=== PATIENT | male | born 1935 | race Caucasian/White ===

== ENCOUNTER 2016-10-04 12:51 | Day surgery (SDC) | payer MEDICARE ==
[2016-10-04] VITALS (10 sets, daily range): BP systolic 112–135; BP diastolic 54–117; PULSE 48–68; RESP 12–17; O2SAT 93–100
[~2016-10-04] VITALS: Ht 175.3 cm; Wt 82.7 kg
--- NOTE | 2016-10-04 08:19 | PCM.HPANE ---
Patient Data Surgeon Admitting Provider: Attending Provider:Ken Ricketts MD Primary Care Physician:Raimundo Hills MD Other Provider:Genevieve Pinedaingham Anesthesia Reason for Visit Right Shoulder Rotator Cuff Tear Ht/WT & BMI Height (Feet): 5 Height (Inches): 7 Weight (Kilograms): 84.1 Body Mass Index 29.00 Allergies Coded Allergies: Sulfa (Sulfonamide Antibiotics) (Verified Allergy, Unknown, UNKNOWN, ) niacin (Unverified Allergy, Unknown, UNKNOWN, 10/03/16) pravastatin (Unverified Allergy, Unknown, UNKNOWN, 10/03/16) Past Anesthesia History Anesthesia History: Denies:: Abnormal Airway, Anesthesia Reactions, Difficult Intubation, Fam Anesthesia Reaction, Fam Malignant Hypertherm, Malignant Hyperthermia Diabetes History Hx Diabetes?: Yes Type of Diabetes: Type II Glycemic Control: Oral Medication MRSA MRSA: No Medications Blood Thinner: Aspirin Home Meds Incl Beta Cole: Yes (ATENOLOL) Date Beta Cole Taken: Oct 03, 2016 Time Beta Cole Taken: 20:00 Reported Medications oxyCODONE 5 Mg Tablet5-10 Mg PO Q4-6H PRN For Pain Ref 0 10/03/16 Tramadol 50 Mg Bfuasa11 Mg PO Q8H PRN For Pain Ref 0 10/03/[address] (Protonix)40 Mg Egdbkg94 Mg PO DAILY Ref 0 10/03/16 Oxybutynin Chloride ER 10 Mg Tab.er.2410 Mg PO DAILY Ref 0 10/03/16 Metformin 500 Mg Wcewer847 Mg PO BID Ref 0 10/03/16 Gabapentin 300 Mg Emwumzi585 Mg PO HS Ref 0 10/03/16 Docusate Sodium 250 Mg Inlqcvy814 Mg PO DAILY PRN For Constipation Ref 0 10/03/16 Calcium Carbonate/Vitamin D3 (Calcium 500 + Vit D Caplet)1 Each Tablet1 Each PO DAILY 10/03/16 Fluticasone Propionate (Flonase Allergy Relief)50 Mcg/Actuation [place].susp9.9 Ml NS DAILY PRN PRN 10/03/16 Aspirin 81 Mg Vdxiku95 Mg PO DAILY Ref 0 10/03/16 Atenolol 25 Mg Tablet0.5 Tab PO DAILY #30 TABLET Ref 0 12/15/14 Rosuvastatin Calcium (Crestor)20 Mg Jntyfa00 Mg PO HS 30 Days Ref 0 06/25/14 Citalopram 20 Mg Tablet2 Tab PO HS 30 Days Ref 0 06/24/14 Isosorbide MN ER 60 Mg Tab.er.24h60 Mg PO DAILY 06/24/14 Discontinued Reported Medications Fluticasone Propionate (Flonase Nasal)16 Gm [place].susp1 [place] NS BID PRN For Congestion #16 GM Ref 0 01/03/15 Thiamine Mononitrate (Vitamin B-1)100 Mg Uheaub714 Mg PO DAILY 12/15/14 Niacin ER (Niaspan)750 Mg Tab.er.39w411 Mg PO HS 30 Days Ref 0 12/15/14 Meloxicam 15 Mg Xfkrwj65 Mg PO DAILY 30 Days Ref 0 12/15/14 Calcium Carbonate/Vitamin D3 (Calcium 500 + D Tablet)1 Each Tablet1 Each PO 12/15/14 Aspirin (Aspir 81)81 Mg Tablet.dr81 Mg PO DAILY Ref 0 06/24/14 History History of ENT Problems?: Yes HEENT History: Positive for:: Dysphagia Denies:: Abnormal Airway Cataracts Difficult Intubation Hearing Problem Sinus Problem Other HEENT Pertinent History: S/P TONSILLECTOMY Hx of Heart Problems?: Yes Cardiovascular History: Positive for:: Cardiac Surgery (HEART CATH/stent placement 2009-06) Coronary Artery Disease Hypertension Rheumatic Fever (CHILDHOOD) Denies:: AICD Abdominal Aortic Aneurism Atrial Fibrillation Chest Pain Congestive Heart Failure Edema Heart Murmur (ECHO 01/2013 EF 55-60%) Irregular Heartbeat Pacemaker Thrombophlebitis Valvular Heart Disease Hx of Respiratory Problem?: No Respiratory History: Positive for:: Cough Pneumonia Use of C-PAP Machine (VADIM+ W/ CPAP SLEEP STUDY 02/2013) Denies:: Asthma COPD (PFT 01/2014 WNL) Hemoptysis Tuberculosis Hx Neurologic Problems?: Yes Neurological History: Positive for:: 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) Denies:: Alzheimer's Disease Dementia Dizziness Headaches Parkinson's Disease Seizures Other Neurological Pertinent: HX POLYMYALGIA RHEUMATICA Hx of GI Problems?: Yes Gastrointestinal History: Positive for:: Gall Bladder Disease (S/P LUCITA) Gastroesphageal Reflux Heartburn Hiatal Hernia Denies:: Cirrhosis Diverticulitis Gastrointestinal Bleeding Hepatitis Rectal Bleeding Other GI Pertinent History: S/P RPR INCARCERATED UMBILICAL HERNIA Hx of Problems?: Yes Genitourinary History: Positive for:: Kidney Stones (50 years ago) Denies:: HX of Hemodialysis Urinary Tract Infection HX of Peritoneal Dialysis: No Male Hx: Positive for:: Prostate Problems (S/P PROSTATECTOMY FOR CA) Denies:: Scrotal Mass Testicular Surgery Skin History: Denies:: History Skin Disorders? Pressure Ulcers Hx Musculoskeletal Problems?: No Musculoskeletal History: Positive for:: Back Injury (Mid-lower back.) Degenerative Joint Joint Replacement (S/P NOAH) Musculoskeletal Trauma ( HX FX RT FIBULA) Osteoarthritis Hx of Psycho/Social Problems?: No Psycho Social History: Positive for:: Hx Depression Denies:: Anxiety Hx Surgeries?: Yes (CARDIAC STENT, BACK, HERNIA REPAIR, PROSTATE) Hx Any Other Health Problems?: Yes Other History: Positive for:: Cancer (prostate ca) Hospitalization ([facility],O 3 LEVELS,HEART CATH/STENTS,PROSTATECTOMY,ORIF RT FIB, LUCITA,NOAH,TONSILS) Denies:: Endocrine Disease Thyroid Disease History Blood Transfusions: Denies:: Blood Transfuse Reaction Blood Transfusions Hx Diabetes: Yes Hx Alcohol Use: Yes (OCCASIONAL)Hx Substance Use: No Smoking Status: Former Smoker Have You Smoked inLast 12 mo: No Stop/Bang S-Snoring: Do You Snore Loudly: No T-Tired: feel tired, fatigued: Yes O-Obsered: Observed not breath: No P-Blood Pressure: treated: Yes B- Body Mass Index > 35 kg/m2: No A- Age over 50: Yes N- Neck Large Circumference: No G- Gender Male: Yes VADIM Total Score: 4 VADIM Risk Assessment: High Risk, =/>3 Yes VADIM Category 2: Yes Risk Assessment Category Category 1A: Patient has history of documented sleep apnea, and HAS NOT received any narcotic, sedative or anesthesia administration during this stay. Category 1B: Patient has history of documented sleep apnea, and HAS received any narcotic , sedative or anesthesia administration during this stay Category 2: Patient has SUSPECTED Obstructive Sleep Apnea, and HAS received any narcotic , sedative or anesthesia administration during this stay. Category 3: Patient has SUSPECTED Obstructive Sleep Apnea and HAS NOT received narcotic, sedative or anesthesia administration during this stay. Category 4: Outpatient in Procedural Areas with known sleep apnea or who screen positive for High Risk via the STOP/BANG questionnaire. Exam Exam General Appearance: Alert, Oriented X3, Cooperative, No Acute Distress HEENT/AIRWAY: MP 2 Lungs: Clear to Auscultation, Normal Air Movement Heart: Exam Unremarkable, Regular Rate/Rhythm, No Murmurs/Rubs/Gallops Plan Impression Patient chart reviewed, patient interviewed and anesthestic plan with risks, benefits, and alternatives discussed, and informed consent obtained. NPO Status: 06/24/14 ASA Physical Status: ASA3 Severe Disease Anesthetic Plan: GA, Regional Block (right interscalene block consented and planned) Bene/Risks/Altern/Consents: Yes HP Complete Prior to Induction: Yes Terence Reddy MD Oct 04, 2016 08:19
[~2016-10-04 12:51] MED LIST: ASPI-973 PO; ATEN25TA PO; CALC-78 PO; CITA20TA11 PO; CRES20T PO; CeFAZolin 2 Gm/50 mL D5W IV Premix IV ONE; DOCU250C2 PO; FLUT9.9S NS; GABA-502 PO; ISOS60TA2 PO; Lactated Ringer's 1,000 ML IV SCH; METF500T4 PO; OXYB10TA PO; OXYC5TAB72 PO; PANT40TA2 PO; TRAM50TA2 PO
[2016-10-04] MEDS ORDERED: CeFAZolin 2 Gm/50 mL D5W Duplex Bag IV ONE (13:21)
[2016-10-04] MEDS: Lactated Ringer's 1,000 ML IV SCH ×2 (13:38→14:27)
[2016-10-04] MEDS ORDERED: Bupivacaine-MPF 0.5% W/EPI 30 mL Inj INFILTRATE ONE (14:26)
[2016-10-04] MEDS ORDERED: Lidocaine 2%-Epi 1:100,000 20 mL Inj NERVEBLOCK ONE (14:27)
[2016-10-04] MEDS ORDERED: Lactated Ringer's 1,000 ML IV SCH (14:54)
[2016-10-04] MEDS ORDERED: Lactated Ringer's 500 ML IV PRN (14:54)
[2016-10-04] MEDS ORDERED: fentaNYL-PF 50 mCg/mL 2 mL Inj IVPUSH PRN (14:55)
[2016-10-04] MEDS ORDERED: MetoCLOpramide 5 mg/mL 2 mL Inj IVPUSH PRN (14:55)
[2016-10-04] MEDS ORDERED: Dexamethasone 4 mg/mL Inj IVPUSH PRN (14:55)
[2016-10-04] MEDS ORDERED: Phenylephrine 10,000 mCg/mL Inj IVPUSH PRN (14:55)
[2016-10-04] MEDS ORDERED: EPHEDrine Sulfate 50 mg/mL Inj IVPUSH PRN (14:55)
[2016-10-04] MEDS ORDERED: Ondansetron 2 mg/mL 2 mL Inj IVPUSH PRN (14:55)
[2016-10-04] MEDS ORDERED: HYDROmorphone 1 mg/mL Inj IVPUSH PRN (14:55)
--- NOTE | 2016-10-04 16:26 | PCM.ORTHOB ---
Immediate Operative Note Date of Service: Oct 04, 2016 Pre Operative Diagnosis Right shoulder rotator cuff tear Post Operative Diagnosis Same Procedure Right shoulder open rotator cuff repair and acromioplasty Surgeon Surgeon: Ken Ricketts MD Assistants: Jase Wiseman PA-C Findings Right shoulder type II acromion. Full-thickness and retracted tear supraspinatus tendon. Transverse avulsion pattern off the greater tuberosity 3 cm wide with 2-1/2 cm of medial retraction with the supraspinatus tear beginning just posterior to the biceps tendon which appeared intact. Humeral articular surface was intact with minimal periarticular degenerative changes. Tendon to bone double row repair utilizing four Arthrex 4.75 x 19.1 mm PEEK SwivelLock suture anchors with fiber tape and #2 FiberWire. Repair appeared sound with no undue gapping or tension with the intraoperative shoulder range of motion. Repair site did not impinge upon the acromial undersurface. Grafts, Implants: Implants-See Implant Record Complications There were no periprocedural complications identified. Condition Stable Anesthetic Administered: GA, Regional Block Drains: None Catheters: None Output, Estimated Blood Loss: 20 Blood Admin during surgery: No Surgical Cast or Splint: Shoulder Immobilizer Surgical Specimen Removed: No Surgical Specimen sent to Path: No Post Operative Plan The patient will be discharged from daycare surgery went protocol is met. The patient will come out of his right shoulder sling starting postop day #1 to initiate shoulder pendulum exercises, elbow, wrist and hand range of motion exercises. The patient will otherwise refrain from any more strenuous shoulder activities for the next 6 weeks. The patient will present to the orthopedic clinic on or after postoperative day #5 for routine wound check. Skin suture can be removed on or after postoperative day #12. Ken Ricketts MD Oct 04, 2016 16:26
[2016-10-04] MEDS ORDERED: oxyCODONE-Acetamin 5-325 mg Tablet PO PRN (16:35)
--- NOTE | 2016-10-04 16:40 | PCM.ORTHOP ---
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 The patient' s painful right shoulder is also weak with strenuous overhead shoulder activities. The patient's symptoms keep him up at night and interferes with activities of daily living. Preoperative exam of the patient's right shoulder reveals limited forward flexion and weak forward flexion as well as a positive impingement sign. Preoperative MRI of the patient's right shoulder confirms a complete 1 cm tear of the anterolateral supraspinatus tendon with associated severe tendinosis. Type II acromion is noted. The patient has not gotten relief of his shoulder symptoms through activity modification, analgesics and an attempt at shoulder rehabilitation to a home exercise program. The patient presents for right shoulder rotator cuff repair and acromioplasty. The skilled assistance of a physician's vet assistant, Jase Wiseman PA-C, was necessary for the successful completion of this case. The PA was essential for the proper positioning, manipulation of instruments, proper exposure, manipulation of tissues and wound closure. Findings Right shoulder type II acromion. Full-thickness and retracted tear supraspinatus tendon. Transverse avulsion pattern off the greater tuberosity 3 cm wide with 2-1/2 cm of medial retraction with the supraspinatus tear beginning just posterior to the biceps tendon which appeared intact. Humeral articular surface was intact with minimal periarticular degenerative changes. Tendon to bone double row repair utilizing four Arthrex 4.75 x 19.1 mm PEEK SwivelLock suture anchors with fiber tape and #2 FiberWire. Repair appeared sound with no undue gapping or tension with the intraoperative shoulder range of motion. Repair site did not impinge upon the acromial undersurface. Details of Procedure The patient received a right upper extremity supraclavicular block performed by the anesthesia service. The patient was taken to the OR and given a general anesthetic. He is placed in the beachchair position. The right shoulder girdle and upper extremity were prepped and draped in usual sterile fashion. A slightly oblique anterior saber incision was placed over the lateral edge of the acromium and taken down through subcutaneous tissues after infiltrating the skin with 2% lidocaine with epinephrine. The exposure was deepened to the deltoid where the deltoid was divided in line with its fibers between the anterior and middle one third heads off the lateral edge of the acromion. We deepened through the deep deltoid fascia and encountered a thickened subacromial bursa and a campbell of synovial fluid. We confirmed the presence of a type II acromion and a large, retracted full-thickness tear of the supraspinatus tendon beginning just posterior to the biceps tendon which appeared intact and extended in a transverse fashion posteriorly 3 cm. There was 2-1/2 cm of medial retraction of the somewhat tendon on the tendon edge. Minimal debridement of the tendon was required. We proceeded with our subacromial acromioplasty. Metacarpal osteotomes and a air sagittal saw was used to remove an anterolateral wedge of the acromial undersurface. The acromial undersurface was then rasped smooth with a power rasp and the wound was irrigated. We proceeded with our tendon to bone double row rotator cuff repair using 4 Arthrex PEEK SwivelLock suture anchors. Two of the anchors were placed as a medial row paralleling and just distal to the humeral head articular surface at the periphery of the tears. We used the Arthrex scorpion instrument to pass the fiber tape and #2 FiberWire sutures through the retracted supraspinatus tendon stump. The fiber tape and FiberWire were then attached to the 2 lateral suture anchors and seated into the greater tuberosity 2 cm distal to the medial row suture anchors. This resulted in a satisfactory repair of the previously torn and retracted supraspinatus tendon without any peripheral dog ears. The excess FiberWire and fiber tape were removed. The repair appeared sound without any undue gapping or tension with shoulder range of motion. The repair site did not impinge on the acromial undersurface. We thoroughly irrigated the wound. We closed with interrupted [id number] #1 Vicryl repair of the deltoid split. We used 2-0 Vicryl to close the deep subcutaneous tissues and 3-0 Vicryl to close the superficial subcutaneous tissues. A running 3-0 Prolene subcuticular stitch was used to close the skin. Xeroform and dry gauze dressings were applied. The patient was then placed into a right shoulder sling and taken back to PACU in stable and satisfactory condition. There were no complications. Patient tolerated the procedure well. Grafts, Implants: Implants-See Implant Record Complications There were no periprocedural complications identified. Condition Stable Anesthetic Administered: GA, Regional Block Drains: None Catheters: None Output, Estimated Blood Loss: 20 Blood Admin during surgery: No Surgical Cast or Splint: Shoulder Immobilizer Surgical Specimen Removed: No Specimen sent to Pathology: No Post Operative Plan The patient will be discharged from daycare surgery went protocol is met. The patient will come out of his right shoulder sling starting postop day #1 to initiate shoulder pendulum exercises, elbow, wrist and hand range of motion exercises. The patient will otherwise refrain from any more strenuous shoulder activities for the next 6 weeks. The patient will present to the orthopedic clinic on or after postoperative day #5 for routine wound check. Skin suture can be removed on or after postoperative day #12. copies to: Raimundo Hills MD; Ken Ricketts MD, Michael G.E MD Oct 04, 2016 16:40
[2016-10-04] MEDS ORDERED: Lactated Ringer's 1,000 ML IV ONE (19:00)
--- NOTE | 2016-10-05 07:20 | PCM.ANEP1 ---
Post Anesthesia Phase 1 PACU Phase 1 Assessment Date of Service: Oct 04, 2016 Anesthetic Administered: GA, Regional Block Level of Alertness: Sleepy, easy to arouse BELL's with Equal Strength: Yes Pain: No Nausea or Vomiting: No Oxygen Delivery: Nasal Cannula Lungs: Clear to Auscultation, Normal Air Movement Dermatome Level: Full Sensation Terence Reddy MD Oct 05, 2016 07:20
--- NOTE | 2016-10-05 07:20 | PCM.ANEP2 ---
Post Anesthesia Evaluation ASA/CMS Post Anesthesia VS in Patient's Normal Range?: Yes Resp Stable; Airway Patent?: Yes CV Function & Hydration Stable: Yes Mental Status Recovered?: Yes Pain control Satisfactory?: Yes N/V Control Satisfactory?: Yes Terence Reddy MD Oct 05, 2016 07:20
== END 2016-10-04 23:59 | disposition home or self-care (01) ==
LOC: SAS 12:51
PROVIDERS: ATTEND Orthopaedic Surgery
DX: M75.121 Complete rotator cuff tear or rupture of right shoulder, not specified as traumatic (principal); W18.30XA Fall on same level, unspecified, initial encounter; Y93.9 Activity, unspecified; Y92.9 Unspecified place or not applicable; Y99.9 Unspecified external cause status; E11.9 Type 2 diabetes mellitus without complications; I10 Essential (primary) hypertension; I25.10 Atherosclerotic heart disease of native coronary artery without angina pectoris; E78.2 Mixed hyperlipidemia; G47.33 Obstructive sleep apnea (adult) (pediatric); F32.9 Major depressive disorder, single episode, unspecified; I69.119 Unspecified symptoms and signs involving cognitive functions following nontraumatic intracerebral hemorrhage; K21.9 Gastro-esophageal reflux disease without esophagitis; Z79.82 Long term (current) use of aspirin; Z79.84 Long term (current) use of oral hypoglycemic drugs; Z87.891 Personal history of nicotine dependence; Z95.5 Presence of coronary angioplasty implant and graft; Z85.46 Personal history of malignant neoplasm of prostate; Z85.828 Personal history of other malignant neoplasm of skin; Z90.79 Acquired absence of other genital organ(s); Z96.649 Presence of unspecified artificial hip joint
CPT/HCPCS: 23420; 76942; C1713; J0690; J2405; J7120

== ENCOUNTER 2017-04-07 16:27 | Emergency (ER) | payer MEDICARE ==
[~2017-04-07] VITALS: Ht 175.3 cm; Wt 86.3 kg
[~2017-04-07 16:27] MED LIST changes: -CeFAZolin 2 Gm/50 mL D5W IV Premix IV ONE; -Lactated Ringer's 1,000 ML IV SCH
[2017-04-07 16:37] VITALS: BP 132/96; PULSE 91; RESP 17; O2SAT 98
--- NOTE | 2017-04-07 16:47 | ED.REPORT ---
HPI-General Illness Date of Service Apr 07, 2017 ED Provider: Ronnie Bradford MD Nursing Notes Stated Complaint: EYE PAIN/FROM [facility] Chief Complaint: Eye Nursing Notes Reviewed: Yes Allergies: Coded Allergies: Sulfa (Sulfonamide Antibiotics) (Verified Allergy, Unknown, UNKNOWN, ) niacin (Unverified Allergy, Unknown, UNKNOWN, 10/03/16) pravastatin (Unverified Allergy, Unknown, UNKNOWN, 10/03/16) Scheduled Aspirin (Aspirin) 81 Mg Tablet 81 MG PO DAILY Atenolol (Atenolol) 25 Mg Tablet 0.5 TAB PO DAILY Calcium Carbonate/Vitamin D3 (Calcium 500 + Vit D Caplet) 1 Each Tablet 1 EACH PO DAILY Citalopram (Citalopram) 20 Mg Tablet 2 TAB PO HS Gabapentin (Gabapentin) 300 Mg Capsule 300 MG PO HS Isosorbide MN ER (Isosorbide MN ER) 60 Mg Tab.er.24h 60 MG PO DAILY Metformin (Metformin) 500 Mg Tablet 500 MG PO BID Oxybutynin Chloride ER (Oxybutynin Chloride ER) 10 Mg Tab.er.24 10 MG PO DAILY Pantoprazole DR (Protonix) 40 Mg Tablet 40 MG PO DAILY Rosuvastatin Calcium (Crestor) 20 Mg Tablet 20 MG PO HS Scheduled PRN Docusate Sodium (Docusate Sodium) 250 Mg Capsule 250 MG PO DAILY PRN PRN For Constipation Fluticasone Propionate (Flonase Allergy Relief) 50 Mcg/Actuation [place].susp 9.9 ML NS DAILY PRN PRN PRN Tramadol (Tramadol) 50 Mg Tablet 50 MG PO Q8H PRN PRN For Pain oxyCODONE (oxyCODONE) 5 Mg Tablet 5-10 MG PO Q4-6H PRN PRN For Pain General Time Seen by MD: 16:46 Past Medical History Past Medical History Notes: In ED on 12/18/14 for altered LOC - no cause identified Past Medical History [place] Heart murmur Pneumonia Sleep apnea Hiatal hernia Kidney stones Cholecystitis Arthritis Thrombocytopenia Reports: Cancer, GERD, Hyperlipidemia, Hypertension Past Surgical History Cardiac stents/cath S/P prostatectomy for CA Right fibula repair Spine surg Laparoscopic cholecystectomy with intraoperative cholangiogram on 12/16/14 Reports: Hip replacement Family History Noncontributory Smoking History Former Smoker Social History Alcohol Use: "Social" Drug Use: Denies drug use Other Social History: , Local resident Occupation salad counter attendant Ambulatory Status Walker Physical Exam Vital Signs Vital Signs Date Time Temp Pulse Resp B/P Pulse Ox O2 Delivery O2 Flow Rate FiO2 04/07/17 16:37 36.9 91 17 132/96 98 Room Air Discharge & Departure Referrals: Raimundo Hills MD (PCP) copies to: Raimundo Hills MD, William B MD Apr 07, 2017 16:47 MACIE WALDROP Apr 07, 2017 16:54 Full Review of Systems Eyes: Reports: Discharge right Respiratory: Denies: Non-productive cough, Shortness of breath Cardiovascular: Denies: Chest pain GI: Denies: Abdominal pain, Vomiting Musculoskeletal: Denies: Back pain, Neck pain Skin: Denies Rash Complete sys rev & neg: except as marked. Physical Exam Constitutional: Well-developed, well-nourished. Not diaphoretic. Head: Normocephalic and atraumatic. Mouth/Throat: Oropharynx is clear and moist. No oropharyngeal exudate. Eyes: EOM are normal. Pupils are equal, round, and reactive to light. Visual acuity: 20/40 bilaterally. Neck: Supple, no tracheal deviation. Cardiovascular: Normal rate, regular rhythm. Equal and intact distal pulses throughout. Pulmonary/Chest: Effort normal and breath sounds normal. No respiratory distress. Abdominal: Soft. No distension. There is no tenderness, rebound, or guarding. Bowel sounds present. Musculoskeletal: Range of motion grossly intact, moving all extremities. No edema or tenderness appreciated. Neurological: AOx3. Grossly nonfocal exam. Strength and sensation intact and equal to bilateral upper and lower extremities. Normal finger to nose testing . No pronator drift. Negative Romberg, unremarkable gait. Skin: Warm and dry, no rashes or pallor appreciated. Psychiatric: Appropriate mood and affect. Behavior appears normal. Vital Signs Vital Signs Date Time Temp Pulse Resp B/P Pulse Ox O2 Delivery O2 Flow Rate FiO2 04/07/17 16:37 36.9 91 17 132/96 98 Room Air Initial VS: Reviewed Re-Eval/Medical Decision Med Decision/Clinical Course visual acuity: 20/40 bilaterally Counseled Regarding: Diagnosis, Lab results, Need for follow-up, When/why to return to ED Discharge & Departure Disposition: Home Discharge Condition All VS Reviewed: Yes Condition: Stable Referrals: Raimundo Hills MD (PCP) [place] Attestation Portions of this note were transcribed by Macie Waldrop. I, Dr. Bradford personally performed the history, physical exam and medical decision-making; I reviewed and confirmed the accuracy of the information in the transcribed note. Signed by: Justin Burgess, 04/07/2017 and [id number]. copies to: Raimundo Hills MD, William B MD Apr 07, 2017 16:47 MACIE WALDROP Apr 07, 2017 16:54
[2017-04-07] MEDS ORDERED: Fluorescein 0.6 mg Ophthalmic Strip ONE (16:48)
[2017-04-07] MEDS ORDERED: 0.9% Sodium Chloride Inhalation Solution ONE (16:48)
[2017-04-07] MEDS ORDERED: Tetracaine 0.5% 4 mL Ophthalmic Solution ONE (16:49)
--- NOTE | 2017-04-07 18:29 | ED.REPORT ---
HPI-Eye Problem Date of Service Apr 07, 2017 ED Provider: Dov Finley DO Pt is an 81 year old male with a history of type II DM and AL who presents to the ED complaining of worsening bloody right eye drainage onset this morning. He c/o associated mildly diminished vision. He denies right eye pain or swelling. The pt presented to with his symptoms and was referred to the ED for further evaluation. He reports taking aspirin daily. The pt reports that he didn't sneeze or cough, but he may have rubbed his eye. Nursing Notes Stated Complaint: EYE PAIN/FROM [facility] Chief Complaint: Eye Nursing Notes Reviewed: Yes Allergies: Coded Allergies: Sulfa (Sulfonamide Antibiotics) (Verified Allergy, Unknown, UNKNOWN, ) niacin (Unverified Allergy, Unknown, UNKNOWN, 10/03/16) pravastatin (Unverified Allergy, Unknown, UNKNOWN, 10/03/16) Scheduled Aspirin (Aspirin) 81 Mg Tablet 81 MG PO DAILY Atenolol (Atenolol) 25 Mg Tablet 0.5 TAB PO DAILY Calcium Carbonate/Vitamin D3 (Calcium 500 + Vit D Caplet) 1 Each Tablet 1 EACH PO DAILY Citalopram (Citalopram) 20 Mg Tablet 2 TAB PO HS Gabapentin (Gabapentin) 300 Mg Capsule 300 MG PO HS Isosorbide MN ER (Isosorbide MN ER) 60 Mg Tab.er.24h 60 MG PO DAILY Metformin (Metformin) 500 Mg Tablet 500 MG PO BID Oxybutynin Chloride ER (Oxybutynin Chloride ER) 10 Mg Tab.er.24 10 MG PO DAILY Pantoprazole DR (Protonix) 40 Mg Tablet 40 MG PO DAILY Rosuvastatin Calcium (Crestor) 20 Mg Tablet 20 MG PO HS Scheduled PRN Docusate Sodium (Docusate Sodium) 250 Mg Capsule 250 MG PO DAILY PRN PRN For Constipation Fluticasone Propionate (Flonase Allergy Relief) 50 Mcg/Actuation [place].susp 9.9 ML NS DAILY PRN PRN PRN Tramadol (Tramadol) 50 Mg Tablet 50 MG PO Q8H PRN PRN For Pain oxyCODONE (oxyCODONE) 5 Mg Tablet 5-10 MG PO Q4-6H PRN PRN For Pain General Time Seen by MD: 18:29 Chief Complaint Right eye affected Hx Obtained From: Patient Arrived By: Walk-in Sudden in Onset?: No Onset Occurred: 5 - 8 hours ago Symptom Duration: Since onset Past Medical History Past Medical History Notes: In ED on 12/18/14 for altered LOC - no cause identified Past Medical History AL Heart murmur Pneumonia Sleep apnea Hiatal hernia Kidney stones Cholecystitis Arthritis Thrombocytopenia Reports: Cancer, GERD, Hyperlipidemia, Hypertension Past Surgical History Cardiac stents/cath S/P prostatectomy for CA Right fibula repair Spine surg Laparoscopic cholecystectomy with intraoperative cholangiogram on 12/16/14 Reports: Hip replacement Family History Noncontributory Smoking History Former Smoker Social History Alcohol Use: "Social" Drug Use: Denies drug use Other Social History: , Local resident Occupation taxation accountant Ambulatory Status Walker Review of Systems Eyes: Reports: Discharge right, Redness right, Denies: Eye pain left, Eye pain right Complete sys rev & neg: except as marked. Respiratory: Denies: Non-productive cough Physical Exam Initial Vital Signs Vital Signs (First) Date Time Temp Pulse Resp B/P Pulse Ox O2 Delivery O2 Flow Rate FiO2 04/07/17 16:37 36.9 91 17 132/96 98 Room Air Initial VS: Reviewed Neck: Supple, Full range of motion Respiratory: Breath sounds normal, Clear to auscultation, No respiratory distress Cardiovascular: Regular rate & rhythm, Heart sounds normal, Intact distal pulses Abdomen / GI: Soft, Non-tender Extremities: Vascular intact, Neuro intact Skin: Warm, Dry, No cyanosis Neurologic: Alert, Oriented, Nonfocal Psychiatric: Mood/affect normal, Behavior normal Head / Eyes: Atraumatic, Normocephalic, PERRL 80% subjunctival hemorrhage, but anterior chambers are clear. Scleral abrasion present. Right eye pressure - 17. Retina normal. Vision acuity normal. No cells in anterior chamber. General/Constitutional: Awake, Alert, Cooperative Re-Eval/Medical Decision Med Decision/Clinical Course Florescein uptake over the inferior aspect of his sclera. No corneal abrasion. I will place him on topical anti-infection drops. Up for follow-up. No signs of globe or anterior or posterior chamber involvement Source of Hx: Old records Re-Evaluation/Progress : Time of Eval: 18:41 Patient Status: Condition improved Re-Evaluation/Progress Note: Pt rechecked. Informed pt of plan for discharge. Pt understands and agrees with plan for discharge. F/U instructions and RTER warnings given. All questions addressed. Counseled Regarding: Diagnosis, Need for follow-up, When/why to return to ED Discharge & Departure Primary Impression: Subconjunctival hemorrhage of right eye Additional Impression: Abrasion of sclera of right eye Encounter type: initial encounter Qualified Code: S05.8X1A - Other injuries of right eye and orbit, initial encounter Disposition: Home Discharge Condition All VS Reviewed: Yes Condition: Stable Patient Instructions: Subconjunctival Hemorrhage (ED) Additional Instructions: Apply 1 drop Oflox every 4 hours for 5 days. Call your doctor or the referral assistant professor of psychology on Sunday for a follow-up appointment on Sunday or Sunday. Return to the Emergency Department for any new or worsening symptoms. Referrals: Raimundo Hills MD (PCP) Rosemary Flores MD Attestation Portions of this note were transcribed by Yi Sawant. I, Dr. Finley personally performed the history, physical exam and medical decision-making; I reviewed and confirmed the accuracy of the information in the transcribed note. Signed by : Justin Virgen, 04/07/17 and 19:30. copies to: Rosemary Flores MD; Raimundo Hills MD, Todd P DO Apr 07, 2017 18:29 Yi Brown Apr 07, 2017 18:38
[2017-04-07] MEDS ORDERED: Ciprofloxacin 0.3% 5 mL Ophthalmic Solution RIGHT_EYE ONE (18:50)
[2017-04-07] MEDS ORDERED: Ciprofloxacin 0.3% 5 mL Ophthalmic Solution RIGHT_EYE SCH (19:00)
[2017-04-07 19:26] VITALS: BP 131/81; PULSE 86; RESP 16; O2SAT 99
[2017-04-20] MEDS ORDERED: TLT2T PO (10:48)
[2017-04-20] MEDS ORDERED: NAPR220C11 PO (10:48)
== END 2017-04-07 19:26 | disposition home or self-care (01) ==
LOC: SED 16:27
DX: H11.31 Conjunctival hemorrhage, right eye (principal); S05.8X1A Other injuries of right eye and orbit, initial encounter; X58.XXXA Exposure to other specified factors, initial encounter; Y93.9 Activity, unspecified; Y92.9 Unspecified place or not applicable; Y99.9 Unspecified external cause status; I10 Essential (primary) hypertension; I25.2 Old myocardial infarction; E11.9 Type 2 diabetes mellitus without complications; Z95.5 Presence of coronary angioplasty implant and graft; Z79.84 Long term (current) use of oral hypoglycemic drugs; Z79.82 Long term (current) use of aspirin; Z87.891 Personal history of nicotine dependence; Z88.2 Allergy status to sulfonamides; Z88.8 Allergy status to other drugs, medicaments and biological substances
CPT/HCPCS: 99283; G0463

== ENCOUNTER 2017-04-26 06:06 | Day surgery (SDC) | payer MEDICARE ==
[~2017-04-26] VITALS: Ht 175.3 cm; Wt 87.7 kg
[~2017-04-26 06:06] MED LIST changes: -ATEN25TA PO; -CALC-78 PO; -CITA20TA11 PO; -FLUT9.9S NS; -ISOS60TA2 PO; -METF500T4 PO; +NAPR220C11 PO; -OXYC5TAB72 PO; -PANT40TA2 PO; +TLT2T PO; -TRAM50TA2 PO
[2017-04-26] MEDS: Lactated Ringer's 1,000 ML IV SCH ×2 (06:22→07:26)
[2017-04-26 06:28] VITALS: BP 153/79; PULSE 84; RESP 16; O2SAT 98
[2017-04-26] MEDS ORDERED: Lactated Ringer's 500 ML IV PRN (07:19)
[2017-04-26] MEDS ORDERED: Lactated Ringer's 1,000 ML IV SCH (07:19)
--- NOTE | 2017-04-26 07:19 | PCM.HPANE ---
Patient Data Surgeon Admitting Provider: Attending Provider:Jason Fuchs DO Primary Care Physician:Raimundo Hills MD Other Provider:Dangelo Pineda Anesthesia Reason for Visit Left Carpal Tunnel Syndrome Ht/WT & BMI Height (Feet): 5 Height (Inches): 9 Weight (Kilograms): 87.7 Body Mass Index 28.00 Allergies Coded Allergies: Sulfa (Sulfonamide Antibiotics) (Verified Allergy, Unknown, UNKNOWN, ) Past Anesthesia History Anesthesia History: Denies:: Abnormal Airway, Anesthesia Reactions, Difficult Intubation, Fam Anesthesia Reaction, Fam Malignant Hypertherm, Malignant Hyperthermia Diabetes History Hx Diabetes?: No Type of Diabetes: Type II Glycemic Control: Diet Controlled MRSA MRSA: No Medications Blood Thinner: Aspirin Last Dose Blood Thinner: Apr 21, 2017 Hypertension Medication: Yes (crestor) Home Meds Incl Beta Cole: No Reported Medications Tolterodine Tartrate (Detrol)2 Mg Tablet2 Mg PO DAILY 04/20/17 Naproxen Sodium (Aleve)220 Mg Hccwivv793 Mg PO 04/20/17 Oxybutynin Chloride ER 10 Mg Tab.er.2410 Mg PO DAILY Ref 0 10/03/16 Gabapentin 300 Mg Wutbzod228 Mg PO HS Ref 0 10/03/16 Docusate Sodium 250 Mg Qpkkzbp128 Mg PO DAILY PRN For Constipation Ref 0 10/03/16 Aspirin 81 Mg Wwvnxk44 Mg PO DAILY Ref 0 10/03/16 Rosuvastatin Calcium (Crestor)20 Mg Moonmp14 Mg PO HS 30 Days Ref 0 06/25/14 Discontinued Reported Medications oxyCODONE 5 Mg Tablet5-10 Mg PO Q4-6H PRN For Pain Ref 0 10/03/16 Tramadol 50 Mg Sdejsk79 Mg PO Q8H PRN For Pain Ref 0 10/03/[address] (Protonix)40 Mg Tvfrjx12 Mg PO DAILY Ref 0 10/03/16 Metformin 500 Mg Rjsmwr976 Mg PO BID Ref 0 10/03/16 Calcium Carbonate/Vitamin D3 (Calcium 500 + Vit D Caplet)1 Each Tablet1 Each PO DAILY 10/03/16 Fluticasone Propionate (Flonase Allergy Relief)50 Mcg/Actuation [place].susp9.9 Ml NS DAILY PRN PRN 10/03/16 Atenolol 25 Mg Tablet0.5 Tab PO DAILY #30 TABLET Ref 0 3/31/15 Citalopram 20 Mg Tablet2 Tab PO HS 30 Days Ref 0 06/24/14 Isosorbide MN ER 60 Mg Tab.er.24h60 Mg PO DAILY 06/24/14 History History of ENT Problems?: Yes HEENT History: Positive for:: Dysphagia (esophsagus dysmobility) Denies:: Abnormal Airway Cataracts Difficult Intubation Glaucoma Hearing Problem Sinus Problem TMJ Denture Type: None Teeth Condition: Within Normal Limits Hx of Heart Problems?: Yes Cardiovascular History: Positive for:: Cardiac Surgery (HEART CATH/stent placement 2009-06) Coronary Artery Disease Hypertension Rheumatic Fever (CHILDHOOD) Denies:: AICD Abdominal Aortic Aneurism Atrial Fibrillation Chest Pain Congestive Heart Failure Edema Heart Murmur Irregular Heartbeat Pacemaker Thrombophlebitis Valvular Heart Disease Other Cardiac History: Echo 04/18/17 60-65% EJ Hx of Respiratory Problem?: No Respiratory History: Positive for:: COPD (PFT 01/2014 WNL) Pneumonia Use of C-PAP Machine (VADIM+ W/ CPAP SLEEP STUDY 02/2013) Denies:: Asthma Cough (occassionally) Dyspnea Emphysema Hemoptysis Pulmonary Embolism Tuberculosis Use of Inhalers / NEBS Hx Neurologic Problems?: Yes Neurological History: Denies:: Alzheimer's Disease CVA Dementia Dizziness Headaches Parkinson's Disease Seizures TIA Hx of GI Problems?: Yes Hx of Problems?: Yes Genitourinary History: Positive for:: Kidney Stones (50 years ago) Denies:: HX of Hemodialysis Urinary Tract Infection HX of Peritoneal Dialysis: No Male Hx: Positive for:: Prostate Problems (S/P PROSTATECTOMY FOR CA) Denies:: Scrotal Mass Testicular Surgery Skin History: Denies:: History Skin Disorders? Pressure Ulcers Hx Musculoskeletal Problems?: No Musculoskeletal History: Positive for:: Back Injury (Mid-lower back.) Musculoskeletal Trauma ( 08/02 fell twice with closed heaed injury) Rheumatoid Arthritis Denies:: Degenerative Joint Joint Replacement Hx of Psycho/Social Problems?: Yes Psycho Social History: Positive for:: Hx Depression Denies:: Anxiety Hx Surgeries?: Yes (CARDIAC STENT, BACK, HERNIA REPAIR, PROSTATE) Hx Any Other Health Problems?: Yes Other History: Positive for:: Cancer (prostate ca) Hospitalization ([facility],O 3 LEVELS,HEART CATH/STENTS,PROSTATECTOMY,ORIF RT FIB, LUCITA,NOAH,TONSILS) Denies:: Endocrine Disease Thyroid Disease History Blood Transfusions: Positive for:: Accept Blood Products? Denies:: Blood Transfuse Reaction Blood Transfusions Hx Diabetes: No Hx Alcohol Use: Yes (OCCASIONAL)Hx Substance Use: No Smoking Status: Former Smoker Have You Smoked inLast 12 mo: No Stop/Bang Risk Assessment Category Category 1A: Patient has history of documented sleep apnea, and HAS NOT received any narcotic, sedative or anesthesia administration during this stay. Category 1B: Patient has history of documented sleep apnea, and HAS received any narcotic , sedative or anesthesia administration during this stay Category 2: Patient has SUSPECTED Obstructive Sleep Apnea, and HAS received any narcotic , sedative or anesthesia administration during this stay. Category 3: Patient has SUSPECTED Obstructive Sleep Apnea and HAS NOT received narcotic, sedative or anesthesia administration during this stay. Category 4: Outpatient in Procedural Areas with known sleep apnea or who screen positive for High Risk via the STOP/BANG questionnaire. Exam Exam Vital Signs Vital Signs Date Time Temp Pulse Resp B/P Pulse Ox O2 Delivery O2 Flow Rate FiO2 04/26/17 06:28 35.9 84 16 153/79 98 Room Air General Appearance: Alert HEENT/AIRWAY: MP 3, Neck Movement (from, 3 fb) Meds/Labs/Diagnostics Admission Meds Current Medications Lactated Ringer's (Lr) 1,000 ml @ 120 mls/hr Q8H20M IV Last administered on t 06:22; Start 04/26/17 at 05:00; Stop 04/26/17 at 13:19 Plan Impression Patient chart reviewed, patient interviewed and anesthestic plan with risks, benefits, and alternatives discussed, and informed consent obtained. NPO per Anesth. Guidelines: Yes ASA Physical Status: ASA3 Severe Disease Anesthetic Plan: Regional Block Bene/Risks/Altern/Consents: Yes HP Complete Prior to Induction: Yes Other Discussed IV regional with sedation. All questions were answered and he agrees to proceed. Antoni Murray MD Apr 26, 2017 07:07
[2017-04-26] MEDS ORDERED: EPHEDrine Sulfate 50 mg/mL Inj IVPUSH PRN (07:20)
[2017-04-26] MEDS ORDERED: fentaNYL-PF 50 mCg/mL 2 mL Inj IVPUSH PRN (07:20)
[2017-04-26] MEDS ORDERED: HYDROmorphone 1 mg/mL Inj IVPUSH PRN (07:20)
[2017-04-26] MEDS ORDERED: MetoCLOpramide 5 mg/mL 2 mL Inj IVPUSH PRN (07:20)
[2017-04-26] MEDS ORDERED: Ondansetron 2 mg/mL 2 mL Inj IVPUSH PRN (07:20)
[2017-04-26] MEDS ORDERED: Phenylephrine 10,000 mCg/mL Inj IVPUSH PRN (07:20)
[2017-04-26] MEDS ORDERED: Dexamethasone 4 mg/mL Inj IVPUSH PRN (07:20)
[2017-04-26] MEDS ORDERED: HYDROcodone-APAP 5-325 mg Tablet PO PRN (07:30)
[2017-04-26] MEDS ORDERED: Lidocaine 1%-Epi 1:100,000 20 mL Inj INJ ONE (07:40)
[2017-04-26 07:55] VITALS: BP 134/74; PULSE 62; RESP 16; O2SAT 95
[2017-04-26 08:05] VITALS: BP 124/70; PULSE 62; RESP 16; O2SAT 95
--- NOTE | 2017-04-26 08:05 | PCM.ANEP1 ---
Post Anesthesia PACU Phase 1 Assessment Vital Signs Vital Signs Date Time Temp Pulse Resp B/P Pulse Ox O2 Delivery O2 Flow Rate FiO2 04/26/17 07:55 36.3 62 16 134/74 95 Room Air 04/26/17 06:28 35.9 84 16 153/79 98 Room Air Anesthetic Administered: Regional Block Level of Alertness: Awake, talking BELL's with Equal Strength: Yes Pain: No Nausea or Vomiting: No CV Function & Hydration Stable: Yes Airway Device: Oxygen Delivery: Room Air Lungs: Clear to Auscultation Dermatome Level: Full Sensation PACU Phase 2 Assessment Complications: No Follow up Care: N/A Patient Instructions Provided: N/A Antoni Murray MD Apr 26, 2017 08:05
[2017-04-26 09:00] VITALS: BP 122/69; PULSE 61; RESP 16; O2SAT 96
--- NOTE | 2017-04-26 09:21 | OP ---
[address] [address] OPERATIVE REPORT PATIENT: LELAND BEDOLLA : 1935 MR#: [id number] ADMIT: 04/26/2017 JOB ID: [id number] DATE OF SURGERY: 04/26/2017 PREOPERATIVE DIAGNOSIS(ES): Left carpal tunnel syndrome. POSTOPERATIVE DIAGNOSIS(ES): Left carpal tunnel syndrome. PROCEDURE: Left open carpal tunnel release. SURGEON: Jason Fuchs D.O. ANESTHESIA: [place] block. HISTORY: The patient is a pleasant 81-year-old male with a longstanding history of left hand pain and numbness. He presented to me with significant electrodiagnostic findings of severe carpal tunnel syndrome. I discussed with the patient the risks, benefits, alternatives, and indications to proceed with a left open carpal tunnel release. I explained to him that the main goal for surgery is to prevent the symptoms from worsening, but there was significant variability to see how much of this sensation will return and could take upwards of a year to see how much of the sensation returns. He understood the risks include, but not limited to, neurovascular injury, tendon injury, infection, failure to resolve the patient's preoperative symptoms, stiffness, persistent pain which require further intervention. The patient had all questions answered. Consent was signed and placed in the chart. PROCEDURE IN DETAIL: The patient was brought to the operative suite and placed supine on the operating table. Surgical time-out was performed. Everyone in the room was in agreement. After appropriate anesthesia was obtained, the left arm was then prepped and draped in sterile fashion. A standard 2 cm longitudinal incision was made in line with the radial aspect of ring finger and the ulnar aspect of the palmaris longus. The incision was kept distal to the wrist crease and proximal to Garcia cardinal line. Subcutaneous tissues were dissected. Bipolar electrocautery utilized to maintain hemostasis throughout the procedure. The palmar fascia was first identified and incised longitudinally in line with the skin incision followed by exposure of the underlying transverse carpal ligament. The transverse carpal ligament was then released in its entirety to include the distal extent of the antebrachial fascia. Copious irrigation was performed followed by closure of skin with 5-0 nylon in interrupted fashion. The patient was then placed in a bulky soft dressing. ESTIMATED BLOOD LOSS: Less than 1 cc. COMPLICATIONS: None. DISPOSITION: The patient tolerated procedure well. Anesthesia was reversed. The patient was transferred to PACU. POSTOPERATIVE PLAN: The patient follow up in office in two weeks. The sutures were removed at this time, and we will start working on range of motion and scar mobilization.
== END 2017-04-26 23:59 | disposition home or self-care (01) ==
LOC: SAS 06:06
PROVIDERS: ATTEND Orthopaedic Surgery
DX: G56.02 Carpal tunnel syndrome, left upper limb (principal); I25.10 Atherosclerotic heart disease of native coronary artery without angina pectoris; I10 Essential (primary) hypertension; R13.10 Dysphagia, unspecified; J44.9 Chronic obstructive pulmonary disease, unspecified; F32.9 Major depressive disorder, single episode, unspecified; Z87.442 Personal history of urinary calculi; Z79.82 Long term (current) use of aspirin; Z79.899 Other long term (current) drug therapy; Z87.891 Personal history of nicotine dependence
CPT/HCPCS: 64721; J7120